=== PATIENT | male | born 1965 | race Caucasian/White ===

== ENCOUNTER → 2016-08-13 | Outpatient (CLI) | payer OTHER ==
[~2016-08-13] MED LIST: ACETAMINOPHEN 325 MG TAB PO PRN; ALTEPLASE 2 MG VIAL IVP PRN; NS 1,000 ML IV SCH; ONDANSETRON 4 MG/2 ML VIAL IVP PRN
[2016-08-13] MEDS: NS 1,000 ML IV SCH ×2 (08:51→10:42)
[2016-08-13 09:23] VITALS: BP 151/84; PULSE 52; TEMP 98; O2SAT 95
== END ==
LOC: F3EOP 08:03
PROVIDERS: ATTEND Internal Medicine Nephrology
PROC: 3E0337Z Introduction of Electrolytic and Water Balance Substance into Peripheral Vein, Percutaneous Approach (ICD-10-PCS; principal; 2016-08-13)
DX: R94.4 Abnormal results of kidney function studies (principal); I10 Essential (primary) hypertension

== ENCOUNTER 2016-10-13 19:13 | Emergency (ER) | payer OTHER ==
[2016-10-13 19:21] VITALS: BP 160/91; PULSE 62; RESP 16; TEMP 98.6; O2SAT 92
--- NOTE | 2016-10-13 19:25 | EDPHY ---
H & P Stated Complaint: R ring finger lac Time Seen by Provider: 10/13/16 19:25 HPI/ROS: HPI CHIEF COMPLAINT: [ ] HISTORY OF PRESENT ILLNESS: [Need 4: Location, Duration, Severity, Quality, Context, Timing Modifying Factors, Associated S&S] Past Medical History: Past Surgical History: Social History: Family History: ROS REVIEW OF SYSTEMS: A comprehensive 10 point review of systems is otherwise negative aside from elements mentioned in the history of present illness. Exam Constitutional triage nursing summary reviewed, vital signs reviewed, awake/ alert. Eyes normal conjunctivae and sclera, EOMI, PERRLA. HENT normal inspection, atraumatic, moist mucus membranes, no epistaxis, neck supple/ no meningismus, no raccoon eyes. Respiratory clear to auscultation bilaterally, normal breath sounds, no respiratory distress, no wheezing. Cardiovascular rate normal, regular rhythm, no murmur, no edema, distal pulses normal. Gastrointestinal soft, non-tender, no rebound, no guarding, normal bowel sounds, no distension, no pulsatile mass. Genitourinary no CVA tenderness. Musculoskeletal no midline vertebral tenderness, full range of motion, no calf swelling, no tenderness of extremities, no meningismus, good pulses, neurovascularly intact. Skin pink, warm, & dry, no rash, skin atraumatic. Neurologic awake, alert and oriented x 3, AAOx3, moves all 4 extremities equally, motor intact, sensory intact, CN II-XII intact, normal cerebellar, normal vision, normal speech. Psychiatric normal mood/affect. Heme/Lymph/Immune no lymphadenopathy. Differential Diagnosis: Medical Decision Making: Re-evaluation: Source: Patient - Personal History Current Tetanus/Diphtheria Vaccine: Unsure Current Tetanus Diphtheria and Acellular Pertussis (TDAP): Unsure - Medical/Surgical History Hx Asthma: No Hx Chronic Respiratory Disease: No Hx Diabetes: No Hx Cardiac Disease: Yes Hx Renal Disease: Yes Hx Cirrhosis: No Hx Alcoholism: Yes Hx HIV/AIDS: No Hx Splenectomy or Spleen Trauma: No Other PMH: pmh- htn, - Social History Smoking Status: Former smoker Constitutional: Initial Vital Signs Temperature (C) 37 C 10/13/16 19:19 Heart Rate 62 10/13/16 19:19 Respiratory Rate 16 10/13/16 19:19 Blood Pressure 160/91 H 10/13/16 19:19 O2 Sat (%) 92 10/13/16 19:19 O2 Delivery Mode Room Air Allergies/Adverse Reactions: No Known Allergies Allergy (Unverified 04/19/16 17:14) Home Medications: Medication Instructions Recorded Amlodipine Besylate 10/13/16 Bystolic 10/13/16 Potassium Chloride 10/13/16 Torsemide 10/13/16 Zantac 10/13/16 Departure - Departure Referrals: Mp Leiva MD [Primary Care Provider] - As per Instructions
== END 2016-10-13 19:31 | disposition left against medical advice (07) ==
DX: Z53.21 Procedure and treatment not carried out due to patient leaving prior to being seen by health care provider (principal)

== ENCOUNTER 2017-01-26 07:59 | Emergency (ER) | payer OTHER ==
[2017-01-26 08:03] VITALS: PULSE 62; RESP 18; TEMP 99.1; O2SAT 96
[2017-01-26 08:29] LABS: % IMMATURE GRANULYOCYTES 0.3 % (0.0-1.1); ABSOLUTE IMMATURE GRANULOCYTES 0.03 10^3/uL (0.00-0.10); ADD DIFF? NO; ADD MORPH? NO; ADD SCAN? NO; ATYPICAL LYMPHOCYTE FLAG 20 (0-99); FRAGMENT RBC FLAG 0 (0-99); HEMOGLOBIN 17.4 g/dL (13.7-17.5); LEFT SHIFT FLG 0 (0-99); LIPEMIA HEMOLYSIS FLAG 80 (0-99); MEAN CELL HEMOGLOBIN 29.1 pg (27.9-34.1); MEAN CELL HEMOGLOBIN CONCENTR. 33.5 g/dL (32.4-36.7); MEAN PLATELET VOLUME 10.2 fL (8.7-11.7); PLATELET CLUMPS FLAG 0 (0-99); PLATELET COUNT 253 10^3/uL (150-400); RED BLOOD CELL COUNT 5.98 10^6/uL (4.40-6.38); RED CELL DISTRIBUTION WIDTH 13.9 % (11.5-15.2)
--- NOTE | 2017-01-26 08:36 | CPEKG ---
Heart Rate: 54 RR Interval: 1111 P-R Interval: 236 QRSD Interval: 94 QT Interval: 436 QTC Interval: 414 P Crowley: 37 QRS Crowley: 16 T Wave Crowley: -22 EKG Severity - ABNORMAL ECG - EKG Impression: SINUS RHYTHM EKG Impression: FIRST DEGREE AV BLOCK EKG Impression: BORDERLINE T ABNORMALITIES, INFERIOR LEADS Electronically Signed By: Haydee Campos 26-Jan-2017 14:26:22
--- NOTE | 2017-01-26 08:41 | EDPHY ---
H & P Time Seen by Provider: 01/26/17 08:21 HPI/ROS: CHIEF COMPLAINT: High potassium HISTORY OF PRESENT ILLNESS: 51-year-old male with a history of hypertension and hyperaldosteronism presents with a concern for high potassium. He takes Norvasc and Bystolic for hypertension. He was recently placed on spironolactone for hyperaldosteronism. This week, his potassium was 5.3. Last night he had left lower extremity cramping and thought that he might have low potassium. He took 40 mEq of potassium at 2:00 a.m.. He called his communication center operator, Dr. Leiva to discuss this and was sent to the emergency department for recheck of his potassium. REVIEW OF SYSTEMS: Constitutional: No fever, no chills Eyes: No visual changes ENT: No sore throat Respiratory: No cough, no shortness of breath Cardiac: No chest pain Gastrointestinal: No nausea, no vomiting, no abdominal pain Genitourinary: no dysuria Skin: No rash Neurological: No headache, no weakness Psychiatric: No depression Past Medical/Surgical History: Hypertension Hyperaldosteronism Social History: Clinical Laboratory Manager of [email or web address] Smoking Status: Current some day smoker Physical Exam: General Appearance: Alert, pleasant Eyes: Pupils equal and round, no conjunctival pallor ENT, Mouth: Mucous membranes moist Neck: Normal inspection Respiratory: Lungs are clear to auscultation Cardiovascular: Regular rate and rhythm Gastrointestinal: Abdomen is soft and nontender Neurological: A&O, nonfocal, normal gait Skin: Warm and dry, no rash Extremities: left lower extremity-normal inspection, no thigh or calf tenderness, no knee effusion, range of motion of knee without pain Psychiatric: Mood and affect normal Constitutional: Initial Vital Signs Temperature (C) 37.3 C 01/26/17 07:59 Heart Rate 62 01/26/17 07:59 Respiratory Rate 18 01/26/17 07:59 Blood Pressure 146/89 H 01/26/17 07:59 O2 Sat (%) 96 01/26/17 07:59 O2 Delivery Mode Room Air Allergies/Adverse Reactions: No Known Allergies Allergy (Unverified 04/19/16 17:14) Home Medications: Medication Instructions Recorded Amlodipine Besylate 10/13/16 Bystolic 10/13/16 Potassium Chloride 10/13/16 Torsemide 06/14/17 Zantac 10/13/16 Medical Decision Making - Diagnostics EKG Interpretation: EKG interpreted by me reveals first-degree AV block, rate 54, nonspecific T- wave flattening in the inferior leads. ED Course/Re-evaluation: Normal potassium. Pt encouraged not to take potassium supplementation. Pt will f/u with DR Leiva. - Data Points Laboratory Results: Laboratory Results 01/26/17 08:20 01/26/17 08:20 01/26/17 01/26/17 08:20 08:20 WBC 11.17 10^3/uL H 10^3/uL (3.80-9.50) RBC 5.98 10^6/uL 10^6/uL (4.40-6.38) Hgb 17.4 g/dL g/dL (13.7-17.5) Hct 52.0 % H % (40.0-51.0) MCV 87.0 fL fL (81.5-99.8) MCH 29.1 pg pg (27.9-34.1) MCHC 33.5 g/dL g/dL (32.4-36.7) RDW 13.9 % % (11.5-15.2) Plt Count 253 10^3/uL 10^3/uL (150-400) MPV 10.2 fL fL (8.7-11.7) Neut % (Auto) 64.1 % % (39.3-74.2) Lymph % (Auto) 24.7 % % (15.0-45.0) [place] % (Auto) 7.9 % % (4.5-13.0) Eos % (Auto) 2.6 % % (0.6-7.6) Baso % (Auto) 0.4 % % (0.3-1.7) Nucleat RBC Rel Count 0.0 % % (0.0-0.2) Absolute Neuts (auto) 7.16 10^3/uL H 10^3/uL (1.70-6.50) Absolute Lymphs (auto) 2.76 10^3/uL 10^3/uL (1.00-3.00) Absolute Monos (auto) 0.88 10^3/uL H 10^3/uL (0.30-0.80) Absolute Eos (auto) 0.29 10^3/uL 10^3/uL (0.03-0.40) Absolute Basos (auto) 0.05 10^3/uL 10^3/uL (0.02-0.10) Absolute Nucleated RBC 0.00 10^3/uL 10^3/uL (0-0.01) Immature Gran % 0.3 % % (0.0-1.1) Immature Gran # 0.03 10^3/uL 10^3/uL (0.00-0.10) Sodium 140 mEq/L mEq/L (134-144) Potassium 5.2 mEq/L mEq/L (3.5-5.2) Chloride 102 mEq/L mEq/L (97-110) Carbon Dioxide 22 mEq/l mEq/l (22-31) Anion Gap 16 mEq/L mEq/L (8-16) BUN 36 mg/dL H mg/dL (7-23) Creatinine 1.7 mg/dL H mg/dL (0.7-1.3) Estimated GFR 42 Glucose 105 mg/dL H mg/dL (70-100) Calcium 10.2 mg/dL mg/dL (8.5-10.4) Departure - Departure Disposition: Home, Routine, Self-Care Clinical Impression: Leg cramping, normal potassium level Condition: Good Instructions: Additional Information Additional Instructions: Do not take extra potassium. Drink plenty of fluids. Referrals: Mp Leiva MD [Medical Doctor] - As per Instructions (Follow-up with Dr. Leiva for discussion of your medications.)
[2017-01-26 08:49] LABS: ANION GAP 16 mEq/L (8-16); CALCIUM 10.2 mg/dL (8.5-10.4); CARBON DIOXIDE 22 mEq/l (22-31); CHLORIDE 102 mEq/L (97-110); CREATININE 1.7 mg/dL (0.7-1.3); GLOMERULAR FILTRATION RATE 42; GLUCOSE 105 mg/dL (70-100); POTASSIUM 5.2 mEq/L (3.5-5.2); SODIUM 140 mEq/L (134-144)
[2017-01-26 09:26] VITALS: BP 140/83
== END 2017-01-26 09:25 | disposition home or self-care (01) ==
DX: R25.2 Cramp and spasm (principal); I10 Essential (primary) hypertension; F17.200 Nicotine dependence, unspecified, uncomplicated